=== PATIENT | female | born 1950 | race Caucasian/White ===

== ENCOUNTER 2017-02-27 06:52 | Day surgery (SDC) | payer MEDICARE, OTHER ==
[2017-02-22 09:59] LABS: HEMATOCRIT 45.8 % (36.0-48.0); HEMOGLOBIN 15.2 g/dL (12.0-16.0)
[2017-02-22 10:01] LABS: BUN (BLOOD UREA NITROGEN) 16 MG/DL (6-23); CALCIUM, SERUM 9.3 MG/DL (8.5-10.4); CHLORIDE, SERUM 105 MMOL/L (96-112); CO2 (CARBON DIOXIDE) 32 MMOL/L (24-34); CREATININE 1.11 MG/DL (0.55-1.02); GFR AFRICAN AMERICAN 60 ML/MIN (>=60); GFR NON AFRICAN AMERICAN 51 ML/MIN (>=60); GLUCOSE, SERUM 108 MG/DL (60-99); SODIUM, SERUM 142 MMOL/L (135-148)
--- NOTE | ~2017-02-27 | OP ---
Record Of Operation [facility] [address] [place]. [address] NAME: MISAEL PENA : 48 STATUS : [place] [facility] [place] PAT#: [id number] AGE: 66 ADM/REG DATE : 02/27/17 MR#: [id number] REPORT SERV DATE: 02/27/17 DICTATED BY: NATHAN PHILLIPS DATE: 02/27/17 REPORT STATUS : Draft TRANSCRIBED BY: MODL DATE: 02/27/17 DATE OF PROCEDURE: 02/27/2017 PREOPERATIVE DIAGNOSES: Left L3-4, L4-5, and L5-S1 disk herniation; foraminal stenosis; and lumbar radiculopathy. POSTOPERATIVE DIAGNOSES: Left L3-4, L4-5, and L5-S1 disk herniation; foraminal stenosis; and lumbar radiculopathy. PROCEDURES: Left-sided L3-4, L4-5, and L5-S1 microdiscectomy; use of operative microscope; minimal access spine technology; intraoperative O-arm CT scan with computer navigation with decompression of the left L3 through S1 nerve roots. SURGEON: Nathan Phillips DO. ANESTHESIA: General. ESTIMATED BLOOD LOSS: 15 mL. COMPLICATIONS: Durotomy. INDICATIONS: The patient is a 66-year-old with intractable back and left leg pain. She was initially scheduled for an interbody fusion, but decided to just address the nerve pain and do the microdiskectomy instead. She understands this will not address her back pain. After discussion of the risks and benefits, she elected to proceed with the surgery. DESCRIPTION OF PROCEDURE: I identified the patient in the holding area. Consent was obtained. Went to the operating room. Underwent general anesthesia with endotracheal intubation. Prepped and draped in the usual sterile fashion. Operative safety pause was performed, then we proceeded. The O-arm registration frame was placed in the iliac crest. O-arm was brought in for intraoperative CT scan. Computer registration materials were verified. Under computer guidance, a left longitudinal incision was made over the L3-S1 levels. This was taken down through the fascial layer. Tube dilators were used to minimally invasively dissect down to the left L3-4 interspace. Operative microscope was brought in. A catina was used to perform a laminotomy. Daphne performed a foraminotomy. A knife was used to incise the disk, and free disk material was removed with the pituitary. This freed the L3 and L4 nerve roots. This was repeated again at the left L4-5 and L5-S1 levels. At the L4-5 level, there were severe stenosis and partial erosion over the dural sac. There was a small pinhole leak of spinal fluid that was covered with a DuraGen patch and DuraSeal sealant for a solid seal with no further leak. Irrigation was performed. Hemostasis was achieved. A layered closure was performed. Sterile dressings were applied. The patient was awoken and extubated, and taken to the recovery room in stable condition. OPERATIVE FINDINGS: Left L3-S1 disk herniation with stenosis. Small durotomy repaired with a good seal. Record Of Operation [address] [place]. [address] NAME: MISAEL PENA : [birth year] STATUS : [place] [facility] [place] PAT#: [id number] AGE: 66 ADM/REG DATE : 02/27/17 MR#: [id number] REPORT SERV DATE: 02/27/17 DICTATED BY: NATHAN PHILLIPS DATE: 02/27/17 REPORT STATUS : Draft TRANSCRIBED BY: COLLIN DATE: 02/27/17 LUIS A/COLLIN Nathan Phillips DO / [id number] CC: DO Trudy Chaudhari M.D.
[~2017-02-27 06:52] MED LIST: ADVIL PO; ASAB PO; DIOVAN HCT PO; FLEXERIL5 MG PO; IBU400 PO; P10 PO; P20 PO; SYN075 PO; ULTRAM50 PO; ZANTAC 150 PO; ZANTAC 75 PO
== END 2017-02-27 15:56 | disposition home or self-care (01) ==
LOC: SDC 06:52
PROVIDERS: Orthopaedic Surgery
PROC: 01NB0ZZ Release Lumbar Nerve, Open Approach (ICD-10-PCS; principal; 2017-02-27 08:45)
DX: M51.17 Intervertebral disc disorders with radiculopathy, lumbosacral region (principal); M48.07 Spinal stenosis, lumbosacral region; I10 Essential (primary) hypertension; E03.9 Hypothyroidism, unspecified; M79.7 Fibromyalgia; K21.9 Gastro-esophageal reflux disease without esophagitis; K58.9 Irritable bowel syndrome, unspecified; M19.90 Unspecified osteoarthritis, unspecified site; E66.9 Obesity, unspecified; Z68.37 Body mass index [BMI] 37.0-37.9, adult; Z79.82 Long term (current) use of aspirin; Z79.899 Other long term (current) drug therapy; Z90.49 Acquired absence of other specified parts of digestive tract; Z90.710 Acquired absence of both cervix and uterus; Z98.890 Other specified postprocedural states
CPT/HCPCS: 80048; 85014; 85018; 87641; 88304; 88311; 93005; A9270-GY; C1768; J0690; J1030; J2250; J2270; J2405; J2710; J3010